=== PATIENT | female | born 1970 | race Caucasian/White ===

== ENCOUNTER 2016-04-15 20:04 | Emergency (ER) | payer SELFPAY | END 2016-04-15 20:18 | disposition home or self-care (01) | LOC: ER 20:04 | PROC: 2W3CX1Z Immobilization of Right Lower Arm using Splint (ICD-10-PCS; principal; 2016-04-15) | DX: S52.531A Colles' fracture of right radius, initial encounter for closed fracture (principal); Z90.710 Acquired absence of both cervix and uterus; Z88.0 Allergy status to penicillin; W19.XXXA Unspecified fall, initial encounter | CPT/HCPCS: 73090-RT; 73110-RT; 73130-RT; 96372; 99284; J1170 ==